=== PATIENT | male | born 1995 | race Caucasian/White ===

== ENCOUNTER 2022-06-12 19:44 | Emergency (ER) | payer BC ==
[2022-06-12] MEDS ORDERED: Iopamidol 612 MG/ML 100 ML Bottle IVPUSH ONE (20:12)
[2022-06-12] MEDS ORDERED: Sodium Chloride 0.9% 1,000 ML IV SCH (20:15)
[2022-06-12] MEDS ORDERED: cefTRIAXone 1 GM in Sodium Chloride 0.9% 100 ML IV ONE ×2 (21:36→21:56)
[2022-06-12] MEDS ORDERED: methylPREDNISolone Sodium Succinate 125 MG/2 ML SDV IVPUSH ONE ×2 (21:37→21:56)
== END 2022-06-12 23:25 | disposition home or self-care (01) ==
LOC: JD.ED 19:44
DX: K52.9 Noninfective gastroenteritis and colitis, unspecified (principal); Z86.16 Personal history of COVID-19
CPT/HCPCS: 36415; 74177; 80053; 81003; 83605; 85025; 96361; 96365; 96375; 99284; J0696; J2930; J3490; J7030; Q9967